=== PATIENT | male | born 1940 | race Caucasian/White ===

== ENCOUNTER 2016-12-08 07:00 | Inpatient (IN) | payer MEDICARE, OTHER ==
[2016-12-06 13:16] LABS: BASOPHILS 0.2 %; BASOPHILS ABSOLUTE 0.01 10/3/uL (0.0-0.16); EOSINOPHILS 3.1 %; EOSINOPHILS ABSOLUTE 0.18 10/3/uL (0.0-0.53); HEMATOCRIT 35.7 % (40.0-51.0); HEMOGLOBIN 12.2 g/dL (13.6-17.8); IMMATURE GRANULOCYTES 0.3 %; IMMATURE GRANULOCYTES ABSOLUTE 0.02 10/3/uL (0.0-0.11); LYMPHOCYTES 21.3 %; LYMPHOCYTES ABSOLUTE 1.25 10/3/uL (0.67-4.30); MEAN CORPUS HGB CONC 34.2 g/dL (32.0-36.0); MEAN CORPUSCULAR HEMOGLOB 32.4 pg (26.0-34.0); MEAN CORPUSCULAR VOLUME 94.7 fL (80-100); MEAN PLATELET VOLUME 9.3 fL (9.2-13.0); MONOCYTES 8.9 %; MONOCYTES ABSOLUTE 0.52 10/3/uL (0.21-1.20); NEUTROPHILS 66.2 %; NEUTROPHILS ABSOLUTE 3.89 10/3/uL (2.02-8.40); PLATELET COUNT 237 10/3/uL (150-400); RBC DISTRIBUTION WIDTH 12.4 % (12.0-16.0); RED CELL COUNT 3.77 10/6/uL (4.7-6.1); WHITE BLOOD CELLS 5.9 10/3/uL (4.5-10.5)
[2016-12-06 13:20] LABS: MANUAL DIFF NO %
[2016-12-06 13:21] LABS: INTERNATIONAL NORMAL RATI 1.1 UNITS (-); PROTIME (NOT ORD) 13.9 SEC (12.0-14.5)
[2016-12-06 13:33] LABS: ASCORBIC ACID (UR NOT ORDER) 40 (NEG); BILIRUBIN, URINE NEGATIVE (NEG); KETONE, URINE NEGATIVE (NEG); LEUKOCYTE ESTERASE(NOT OR NEG (NEG); WBC (NOT ORDERED) (RFLEX) < 1 (0-5)
[2016-12-06 13:36] LABS: ALBUMIN 3.8 G/DL (3.5-5.0); CHLORIDE, SERUM 98 MMOL/L (96-112); CREATININE 1.16 MG/DL (0.70-1.30); GFR AFRICAN AMERICAN 70 ML/MIN (>=60); GFR NON AFRICAN AMERICAN 60 ML/MIN (>=60); POTASSIUM, SERUM 4.6 MMOL/L (3.5-5.3); SGOT(AST) 12 U/L (5-40); SGPT(ALT) 25 U/L (5-65); SODIUM, SERUM 137 MMOL/L (135-148); TOTAL BILIRUBIN 0.3 MG/DL (0-1.2); TOTAL PROTEIN 7.1 G/DL (6.0-8.5)
[2016-12-06 13:38] LABS: A/G RATIO 1.2 (0.7-1.9); ALKALINE PHOSPHATASE 56 U/L (45-117); BUN (BLOOD UREA NITROGEN) 14 MG/DL (6-23); CALCIUM, SERUM 9.2 MG/DL (8.5-10.4); CO2 (CARBON DIOXIDE) 29 MMOL/L (24-34); GLOBULIN 3.3 G/DL (2.5-4.1); GLUCOSE, SERUM 99 MG/DL (60-99)
--- NOTE | ~2016-12-08 | OP ---
Record Of Operation [facility] [address] [place]. [address] NAME: JASON GUTIERREZ : 38 STATUS : ADM IN PAT#: [id number] AGE: 76 ADM/REG DATE : 12/08/16 MR#: [id number] REPORT SERV DATE: 12/08/16 DICTATED BY: DENZEL WATKINS JR. DATE: 12/08/16 REPORT STATUS : Draft TRANSCRIBED BY: MODL DATE: 12/08/16 DATE OF PROCEDURE: 12/08/2016 PREOPERATIVE DIAGNOSES: Chronic obstructive pulmonary disease; left upper lobe squamous cell carcinoma; coronary artery disease; abdominal aortic aneurysm status post stent graft placement; diabetes mellitus type 2, non-insulin dependent; hypertension; and peripheral neuropathy. POSTOPERATIVE DIAGNOSES: Chronic obstructive pulmonary disease; left upper lobe squamous cell carcinoma; coronary artery disease; abdominal aortic aneurysm status post stent graft placement; diabetes mellitus type 2, non-insulin dependent; hypertension; and peripheral neuropathy. NAME OF OPERATIONS: Bronchoscopy; left thoracoscopy with left upper lobectomy; complete mediastinal node dissection, ann stations 6, 7, 9, 10L, 11L; and intercostal block. SURGEON: Denzel Watkins M.D. RESIDENT SURGEON: Dr. Portillo Bassett. MOTORCYCLE REPAIRER: Edwar Cano. ANESTHESIA: General endotracheal. FINDINGS: The patient was noted to have no endobronchial lesions or contraindications to proceeding on with surgery. The left lung had a well-developed fissure. The lymph nodes appeared benign. Tumor was involving the visceral pleura, but was not extending to the parietal pleura. Final pathology is pending. Given the patient's family history in particularly a son with a hypercoagulable state and protein S deficiency, we did a hypercoagulable workup prior to giving any anticoagulation. DETAILS OF OPERATION: After adequate general anesthesia, the patient was intubated. Bronchoscopy was performed noting no endobronchial lesions. No contraindication to resection. A left-sided double-lumen endotracheal tube was then placed. The patient was then positioned in the right lateral decubitus position with the left chest prepped and draped in routine sterile fashion. A small incision was made overlying the lower intercostal space. A separate anterior trocar incision was also made. Through these two incision sites, above findings were noted. The inferior pulmonary ligament was divided. The inferior pulmonary vein was identified as well as the superior pulmonary vein. The superior pulmonary vein was then transected with a vascular stapler. The arterial branches were divided with a vascular stapler. The bronchus was divided with a OSMAR stapler. The fissure was divided with multiple firings of OSMAR stapler with tissue reinforcements. The specimen was placed within a specimen bag and brought through the anterior trocar site. Nodes from the AP window, subcarinal, inferior pulmonary ligament, and hilar regions were removed. An intercostal nerve block was performed. A 28-Barb[place] chest tube was then placed. The chest was thoroughly irrigated with sterile water. Adequate hemostasis was obtained. Record Of Operation [facility] [address] [place]. [address] NAME: JASON GUTIERREZ : 38 STATUS : ADM IN [facility]#: [id number] AGE: 76 ADM/REG DATE : 12/08/16 MR#: [id number] REPORT SERV DATE: 12/08/16 DICTATED BY: DENZEL WATKINS JR. DATE: 12/08/16 REPORT STATUS : Draft TRANSCRIBED BY: LJ DATE: 12/08/16 The lung was reinflated. The trocar sites were closed with running Vicryl sutures. The skin was closed with running monofilament suture. A Dermabond dressing was applied. The procedure was terminated at this point. The patient tolerated the procedure well, and taken back to the recovery room in stable condition. MENDEL/LJ Denzel Watkins Jr., M.D. / [id number] CC: Leif Mirza Jr., M.D., F.A.C.CJanice Krueger D.O.
[~2016-12-08 07:00] MED LIST: ADVIL PO; ASA5GR PO; ASABAYER PO; CEFT5 PO; CIP5 PO; FISH OIL300 MG PO; FLOMAX4 PO; GLUCPH PO; HYTRIN10 MG PO; LORTAB 5 PO; MULTIPLE VIT PO; NORV5 PO; PLAVIX PO; PROSCAR5 PO; PROTONIX PO; PYR100B PO; T PO; TOPXL100 PO; URISPAS 100 MG100 MG PO; VITAMIN B-121000 MC1 SL; ZOCOR40 PO; [UNRECOGNIZED DRUG - OTHER] NAS; [UNRECOGNIZED DRUG - OTHER] PO
[2016-12-09 05:10] LABS: BASOPHILS 0.1 %; BASOPHILS ABSOLUTE 0.01 10/3/uL (0.0-0.16); EOSINOPHILS 0 %; HEMATOCRIT 33.7 % (40.0-51.0); HEMOGLOBIN 11.2 g/dL (13.6-17.8); IMMATURE GRANULOCYTES 0.1 %; IMMATURE GRANULOCYTES ABSOLUTE 0.01 10/3/uL (0.0-0.11); LYMPHOCYTES 9.7 %; LYMPHOCYTES ABSOLUTE 0.82 10/3/uL (0.67-4.30); MEAN CORPUS HGB CONC 33.2 g/dL (32.0-36.0); MEAN CORPUSCULAR HEMOGLOB 31.8 pg (26.0-34.0); MEAN CORPUSCULAR VOLUME 95.7 fL (80-100); MEAN PLATELET VOLUME 9.2 fL (9.2-13.0); MONOCYTES 10.6 %; NEUTROPHILS 79.5 %; NEUTROPHILS ABSOLUTE 6.74 10/3/uL (2.02-8.40); PLATELET COUNT 197 10/3/uL (150-400); RBC DISTRIBUTION WIDTH 12.5 % (12.0-16.0); RED CELL COUNT 3.52 10/6/uL (4.7-6.1)
[2016-12-09 05:14] LABS: MANUAL DIFF NO %; WHITE BLOOD CELLS 8.5 10/3/uL (4.5-10.5)
[2016-12-09 05:27] LABS: BUN (BLOOD UREA NITROGEN) 12 MG/DL (6-23); CALCIUM, SERUM 8.5 MG/DL (8.5-10.4); CHLORIDE, SERUM 97 MMOL/L (96-112); CO2 (CARBON DIOXIDE) 25 MMOL/L (24-34); CREATININE 1.07 MG/DL (0.70-1.30); GFR AFRICAN AMERICAN 77 ML/MIN (>=60); GFR NON AFRICAN AMERICAN 67 ML/MIN (>=60); GLUCOSE, SERUM 155 MG/DL (60-99); POTASSIUM, SERUM 4.3 MMOL/L (3.5-5.3); SODIUM, SERUM 135 MMOL/L (135-148)
[2016-12-09] MEDS ORDERED: PCET PO (09:11)
[2016-12-09] MEDS ORDERED: FLOMAX4 PO (09:12)
[2016-12-16 12:44] LABS: ANTITHROMBIN ACTIVITY 50 % (74-126); ANTITHROMBIN AG 58 % (70-110); DRVVT 45.8 sec (31.8-45.7); DRVVT CONFIRM RATIO CHG ND; DRVVT MIX RATIO CHG YES; PROTEIN C ACTIVITY 94 % (70-145); PROTEIN S ACTIVITY 47 % (69-161)
== END 2016-12-09 16:48 | disposition home or self-care (01) | DRG 165 ==
LOC: SDC/OF 07:00 → PACU 12:52 → 5NO 14:47
PROVIDERS: Thoracic Surgery (Cardiothoracic Vascular Surgery)
PROC: 0BJ08ZZ Inspection of Tracheobronchial Tree, Via Natural or Artificial Opening Endoscopic (ICD-10-PCS; 2016-12-08)
PROC: 3E0T3CZ (ICD-10-PCS; 2016-12-08)
PROC: 0BTG4ZZ Resection of Left Upper Lung Lobe, Percutaneous Endoscopic Approach (ICD-10-PCS; principal; 2016-12-08 08:45)
PROC: 07B74ZZ Excision of Thorax Lymphatic, Percutaneous Endoscopic Approach (ICD-10-PCS; 2016-12-08 08:45)
DX: C34.32 Malignant neoplasm of lower lobe, left bronchus or lung (principal); G62.9 Polyneuropathy, unspecified; J44.9 Chronic obstructive pulmonary disease, unspecified; I25.10 Atherosclerotic heart disease of native coronary artery without angina pectoris; E11.9 Type 2 diabetes mellitus without complications; Z79.84 Long term (current) use of oral hypoglycemic drugs; Z79.899 Other long term (current) drug therapy; I10 Essential (primary) hypertension; F17.210 Nicotine dependence, cigarettes, uncomplicated; Z95.5 Presence of coronary angioplasty implant and graft; M19.90 Unspecified osteoarthritis, unspecified site
CPT/HCPCS: 36415; 71010; 71020; 80048; 80053; 81001; 82962; 83036; 85025; 85300; 85301; 85303; 85306; 85307; 85370; 85610; 85613; 85670; 86850; 86900; 86901; 87641; 88305; 88309; 88313; 93005; 94640; A9270-GY; J0690; J2250; J2370; J2405; J2710; J2795; J3010